=== PATIENT | male | born 1995 | race African-American/Black ===

== ENCOUNTER 2017-02-13 16:52 | Emergency (ER) | payer SELFPAY ==
[2017-02-13] MEDS ORDERED: CEFTRIAXONE INJ 250 MG VIAL IM ONE (17:30)
[2017-02-13] MEDS ORDERED: LIDOCAINE 1% INJ-PF (10 MG/ML) 30 ML SDV INJ ONE (17:30)
[2017-02-13] MEDS ORDERED: AZITHROMYCIN 250 MG TABLET PO ONE (17:30)
--- NOTE | 2017-02-13 17:31 | ER Document Report ---
HPI - HPI Patient complains to provider of: partner tested positive for gonorrhea, patient here for treatment Onset: Yesterday Onset/Duration: Sudden Quality of pain: Burning Severity: Mild Pain Level: 2 Context: Patient complains of burning with urination. No discharge Associated Symptoms: None Exacerbated by: Other - Voiding Relieved by: Denies Similar symptoms previously: No Recently seen / treated by doctor: No - ROS ROS below otherwise negative: Yes Systems Reviewed and Negative: Yes All other systems reviewed and negative - CONSTITUTIONAL Constitutional: DENIES: Fever - EENT EENT: DENIES: Congestion - NEURO Neurology: DENIES: Headache - CARDIOVASCULAR Cardiovascular: DENIES: Chest pain - RESPIRATORY Respiratory: DENIES: Trouble Breathing - GASTROINTESTINAL Gastrointestinal: DENIES: Abdominal Pain - URINARY Urinary: REPORTS: Dysuria - MUSCULOSKELETAL Musculoskeletal: DENIES: Extremity pain - DERM Skin Color: Normal Skin Problems: None Past Medical History - General Information source: Patient - Social History Smoking Status: Never Smoker Frequency of alcohol use: Occasional Drug Abuse: None Lives with: Family Family History: None Patient has suicidal ideation: No Patient has homicidal ideation: No Pulmonary Medical History: Reports: Hx Asthma Renal/ Medical History: Denies: Hx Peritoneal Dialysis Surgical Hx: Negative - Immunizations Hx Diphtheria, Pertussis, Tetanus Vaccination: Yes Vertical Provider Document - CONSTITUTIONAL Agree With Documented VS: Yes Exam Limitations: No Limitations General Appearance: WD/WN, No Apparent Distress - INFECTION CONTROL TRAVEL OUTSIDE OF THE [place] IN LAST 30 DAYS: No - HEENT HEENT: Atraumatic, Normocephalic - RESPIRATORY Respiratory: Breath Sounds Normal, No Respiratory Distress - CARDIOVASCULAR Cardiovascular: Regular Rate, Regular Rhythm - GI/ABDOMEN Gastrointestinal: Abdomen Soft, Abdomen Non-Tender, Normal Bowel Sounds - NEURO Level of Consciousness: Awake, Alert, Appropriate - DERM Integumentary: Warm, Dry Discharge - Discharge Clinical Impression: STD exposure Condition: Good Disposition: HOME, SELF-CARE Additional Instructions: Callback between 9 and 9:30 PM for results of STD testing at [phone]. You have already been treated for gonorrhea and chlamydia since you state your partner tested positive for gonorrhea. Wear condoms Notify any partners if results are positive. Follow with your doctor or return if any problems.
[2017-02-13 18:29] VITALS: BP 121/64
[2017-02-13 18:44] LABS: APPEARANCE,URINE CLOUDY; BILIRUBIN,URINE NEGATIVE (NEGATIVE); GLUCOSE, URINE NEGATIVE (NEGATIVE); KETONES,URINE NEGATIVE (NEGATIVE); LEUKOCYTE ESTERASE,URINE LARGE (NEGATIVE); NITRITE,URINE NEGATIVE (NEGATIVE); PROTEIN,URINE 30 mg/dL (NEGATIVE); UROBILINOGEN,URINE NEGATIVE mg/dL (<2.0)
[2017-02-13 20:01] LABS: CHLAM PCR NOT DETECTED (NOT DETECT)
== END 2017-02-13 18:29 | disposition home or self-care (01) ==
LOC: ER 16:52
DX: Z20.2 Contact with and (suspected) exposure to infections with a predominantly sexual mode of transmission (principal)
CPT/HCPCS: 99283; 96372; 81001; 87491; 87591; J3490; J0696

== ENCOUNTER 2018-10-08 23:48 | Emergency (ER) | payer SELFPAY ==
[2018-10-09] MEDS ORDERED: CLINDAMYCIN HCL 150 MG CAPSULE PO ONE (01:58)
[2018-10-09] MEDS ORDERED: KETOROLAC TROMETHAMINE 60 MG/2 ML SDV IM ONE (01:58)
[2018-10-09] MEDS ORDERED: HYDROCODONE/ACETAMINOPHEN 5-325 MG (6 TAB/ER DISP) PO PRN (01:58)
--- NOTE | 2018-10-09 01:59 | ER Document Report ---
ED General - General Chief Complaint: Toothache Stated Complaint: TOOTH PAIN Time Seen by Provider: 10/09/18 00:35 Notes: Patient is a 23-year-old male without chronic medical problems who presents with multiple dental pain areas. Describes several teeth on both his left upper as well as left lower posterior molars as being a severe, throbbing, constant pain that has prevented him from sleeping. The patient reports that the pain has been getting progressively worse over the last 4 days but became much worse today. He has not seen a dentist regarding this concern. Denies any facial swelling, fever, constitutional symptoms, difficulty breathing or swallowing. He has tried onsp-[id number] pain medications with minimal to no relief of his pain. Eating or drinking worsens the pain. No history of similar symptoms in the past. TRAVEL OUTSIDE OF THE [place] IN LAST 30 DAYS: No - Related Data Allergies/Adverse Reactions: No Known Allergies Allergy (Verified 02/13/17 16:55) Past Medical History - General Information source: Patient - Social History Smoking Status: Never Smoker Frequency of alcohol use: None Drug Abuse: None Lives with: Family Family History: Reviewed & Not Pertinent Pulmonary Medical History: Reports: Hx Asthma Renal/ Medical History: Denies: Hx Peritoneal Dialysis - Immunizations Hx Diphtheria, Pertussis, Tetanus Vaccination: Yes Review of Systems - Review of Systems Notes: Constitutional: Negative for fever. HENT: Positive for dental pain Eyes: Negative for visual changes. Cardiovascular: Negative for chest pain. Respiratory: Negative for shortness of breath. Gastrointestinal: Negative for abdominal pain, vomiting or diarrhea. Genitourinary: Negative for dysuria. Musculoskeletal: Negative for back pain. Skin: Negative for rash. Neurological: Negative for headaches, weakness or numbness. 10 point ROS negative except as marked above and in HPI. Physical Exam - Vital signs Vitals: Temp Pulse Resp BP Pulse Ox 98.6 F 62 14 139/79 H 62 L 10/09/18 00:29 10/09/18 00:29 10/09/18 00:29 10/09/18 00:29 10/09/18 00:29 Interpretation: Normal - Please note that the hypoxia in triage is an error and recorded inaccurately Notes: PHYSICAL EXAMINATION: GENERAL: Well-appearing, well-nourished and in no acute distress. HEAD: Atraumatic, normocephalic. EYES: Pupils equal round and reactive to light, extraocular movements intact, sclera anicteric, conjunctiva are normal. ENT: nares patent, oropharynx clear without exudates. Moist mucous membranes. Multiple dental caries in the posterior upper and lower molars on the left side NECK: Normal range of motion, supple without lymphadenopathy LUNGS: Breath sounds clear to auscultation bilaterally and equal. No wheezes rales or rhonchi. HEART: Regular rate and rhythm without murmurs ABDOMEN: Soft, nontender, normoactive bowel sounds. No guarding, no rebound. No masses appreciated. EXTREMITIES: Normal range of motion, no pitting or edema. No cyanosis. NEUROLOGICAL: No focal neurological deficits. Moves all extremities spontaneously and on command. PSYCH: Normal mood, normal affect. SKIN: Warm, Dry, normal turgor, no rashes or lesions noted. Course - Re-evaluation Re-evalutation: 10/09/18 01:59 Presentation is most consistent with likely an infected tooth. Airway is patent. Vitals within normal limits. Patient is able swallow without any difficulty. There is no significant facial swelling. No evidence of Oren angina, apical abscess, or airway obstruction. Patient will be started on antibiotics. I've instructed to follow-up with dentistry as earliest ability for definitive management. At this time will discharge with return precautions and follow-up recommendations. Verbal discharge instructions given a the bedside and opportunity for questions given. Medication warnings reviewed. Patient is in agreement with this plan and has verbalized understanding of return precautions and the need for primary care follow-up in the next 24-72 hours. - Vital Signs Vital signs: Temp Pulse Resp BP Pulse Ox 98.9 F 78 16 145/78 H 100 10/09/18 03:19 10/09/18 03:19 10/09/18 03:19 10/09/18 03:19 10/09/18 03:19 Discharge - Discharge Clinical Impression: Pain, dental Condition: Good Disposition: HOME, SELF-CARE Additional Instructions: You have been seen for dental pain. It is very important that you follow-up with a dentist for definitive care. Please return if you develop fever greater than 101, swelling in your face, vomiting, difficulty breathing or swallowing, or any other symptoms that are concerning to you. For pain you should take ibuprofen 600 mg every 6 hours as needed. Prescriptions: Clindamycin HCl 300 mg PO TID #30 capsule
[2018-10-09 03:19] VITALS: BP 145/78
== END 2018-10-09 03:19 | disposition home or self-care (01) ==
LOC: ER 23:48
DX: K08.9 Disorder of teeth and supporting structures, unspecified (principal)
CPT/HCPCS: 99283; 96372; J1885

== ENCOUNTER 2018-12-22 22:15 | Emergency (ER) | payer SELFPAY ==
[2018-12-23] MEDS ORDERED: CLINDAMYCIN PHOSPHATE INJ 300 MG/2 ML SDV IM ONE (00:22)
[2018-12-23] MEDS ORDERED: HYDROCODONE/ACETAMINOPHEN 5-325 MG TABLET PO ONE (00:23)
[2018-12-23] MEDS ORDERED: LIDOCAINE 2% VISCOUS SOLN 20 ML UDCUP PO ONE (00:23)
--- NOTE | 2018-12-23 00:38 | ER Document Report ---
HPI - HPI Patient complains to provider of: dental infection Time Seen by Provider: 12/23/18 00:22 Onset: Yesterday Onset/Duration: Gradual Quality of pain: Achy Pain Level: 5 Context: Patient presents complaining of dental infection that started yesterday. Patient with left-sided facial swelling. No fever. No difficulty breathing or swallowing. Associated Symptoms: Other - Dental infection Exacerbated by: Denies Relieved by: Denies Similar symptoms previously: No Recently seen / treated by doctor: No - ROS ROS below otherwise negative: Yes Systems Reviewed and Negative: Yes All other systems reviewed and negative - EENT Notes: Dental infection - NEURO Neurology: DENIES: Headache - RESPIRATORY Respiratory: DENIES: Coughing - GASTROINTESTINAL Gastrointestinal: DENIES: Nausea, Patient vomiting - DERM Skin Color: Normal Skin Problems: None Past Medical History - General Information source: Patient - Social History Smoking Status: Never Smoker Cigarette use (# per day): No Frequency of alcohol use: None Drug Abuse: None Occupation: Housekeeping Family History: Reviewed & Not Pertinent Patient has suicidal ideation: No Patient has homicidal ideation: No Pulmonary Medical History: Reports: Hx Asthma Renal/ Medical History: Denies: Hx Peritoneal Dialysis Surgical Hx: Negative - Immunizations Hx Diphtheria, Pertussis, Tetanus Vaccination: Yes Vertical Provider Document - CONSTITUTIONAL Agree With Documented VS: Yes Exam Limitations: No Limitations General Appearance: WD/WN, No Apparent Distress - INFECTION CONTROL TRAVEL OUTSIDE OF THE [place] IN LAST 30 DAYS: No - HEENT HEENT: Atraumatic, Normocephalic Mouth Diagram: 1 - Dental decay, fractured tooth 2 - Gingival abscess, no sublingual or submental swelling, no trismus - NECK Neck: Normal Inspection, Supple. negative: Lymphadenopathy-Left, Lymphadenopathy-Right - RESPIRATORY Respiratory: Breath Sounds Normal, No Respiratory Distress - CARDIOVASCULAR Cardiovascular: Regular Rate, Regular Rhythm - BACK Back: Normal Inspection - MUSCULOSKELETAL/EXTREMETIES Musculoskeletal/Extremeties: MAEW, FROM - NEURO Level of Consciousness: Awake, Alert, Appropriate Motor/Sensory: No Motor Deficit - DERM Integumentary: Warm, Dry, No Rash Course - Vital Signs Vital signs: Temp Pulse Resp BP Pulse Ox 98.0 F 94 14 148/77 H 97 12/22/18 22:39 12/22/18 22:39 12/22/18 22:39 12/22/18 22:39 12/22/18 22:39 Discharge - Discharge Clinical Impression: Dental abscess Condition: Stable Disposition: HOME, SELF-CARE Instructions: Clindamycin ([facility]), Dentist, Dental Infection or Abscess ([facility]), Oral Narcotic Medication ([facility]) Additional Instructions: Return immediately for any new or worsening symptoms Followup with your dental care provider, call tomorrow to make a followup appointment Prescriptions: Clindamycin HCl [Cleocin 300 mg Capsule] 300 mg PO TID #21 capsule Hydrocodone/Acetaminophen [Ayr 5-325 mg Tablet] 1 tab PO Q6 PRN #10 tablet PRN Reason: Naproxen [Naprosyn 250 Nmg Tablet] 1 tab PO BID #14 tablet Forms: Return to Work Referrals: [facility] [Provider Group] - Follow up as needed
[2018-12-23 01:32] VITALS: BP 138/78
== END 2018-12-23 01:12 | disposition home or self-care (01) ==
LOC: ER 22:15
DX: K04.7 Periapical abscess without sinus (principal); K02.9 Dental caries, unspecified; J45.909 Unspecified asthma, uncomplicated
CPT/HCPCS: 99282; 96372; J3490 ×2